=== PATIENT | female | born 1990 | race Caucasian/White ===

== ENCOUNTER 2018-10-06 17:15 | Emergency (ER) | payer OTHER, SELFPAY ==
[2018-10-06 17:28] VITALS: BP 124/72; PULSE 101; RESP 20; TEMP 37.1; O2SAT 100
--- NOTE | 2018-10-06 17:43 | PC.NURSE ---
5 month old son, with hx of bronchiolitis, also with conjunctivitis, pt woke up today with right eye discomfort, redness and with drainage, denies wearing contact lens, denies injuries or trauma.
--- NOTE | 2018-10-06 18:18 | ED.EYEPROB ---
HPI - Eye Problem <ANDRIA Hogan - Last Filed: 10/06/18 18:46> General Chief complaint: Eye Problems Stated complaint: pink eye left Time Seen by Provider: 10/06/18 17:24 Source: patient Mode of arrival: ambulatory Limitations: no limitations History of Present Illness HPI Narrative: 27-year-old healthy female presents emergency department today complaining of right eye irritation, redness, and clear watery discharge since this morning. She states that her infant has also had the same symptoms, and her 2 young infants of both been sick with upper respiratory illnesses. Associated blurry vision from discharge mucus, patient denies double vision or loss of vision, headaches, cough, shortness of breath, ear pain, or sinus pain. No chest pain. Patient does not were contacts. Related Data Allergies Allergy/AdvReac Type Severity Reaction Status Date / Time No Known Drug Allergies Allergy Verified 10/06/18 17:30 Review of Systems <ANDRIA Hogan - Last Filed: 10/06/18 18:46> Review of Systems REVIEW OF SYSTEMS: GENERAL: Denies fever or chills. HENT: No head trauma, hearing loss or sore throat. EYES: Reports right eye irritation, see HPI. CARDIOVASCULAR: No chest pain or syncope. RESPIRATORY: No shortness of breath or cough. GASTROINTESTINAL: No nausea, vomiting, diarrhea, or constipation. GENITOURINARY: No flank pain or dysuria. MUSCULOSKELETAL: No pain, weakness, or deformities. INTEGUMENTARY: No rash, lesions, or pruritus. NEURO: No numbness, tingling, memory loss, or confusion. PSYCH: No behavior or mood changes. PFSH <ANDRIA Hogan - Last Filed: 10/06/18 18:46> Medical History No significant medical problems (Acute) Social History Smoking Status: Former smoker Social History Smoking Status: Former smoker Exam <ANDRIA Hogan - Last Filed: 10/06/18 18:46> Initial Vital Signs Initial Vital Signs: Vital Signs Temperature 98.8 F 10/06/18 17:28 Pulse Rate 101 H 10/06/18 17:28 Respiratory Rate 20 10/06/18 17:28 Blood Pressure 124/72 10/06/18 17:28 Pulse Oximetry 100 10/06/18 17:28 PHYSICAL EXAMINATION: GENERAL: Well groomed, alert, and cooperative. Answers questions promptly and appropriately. Vital signs noted. HENT: Normocephalic, atraumatic. Oral mucosa is pink and moist. EYES: PERRLA, non pain full texture ocular eye movements (although patient states the eye is more irritated with movement and blinking), conjunctiva erythematous, sclera erythematous, clear mucoid discharge was noted in the corner of eye. No periorbital swelling. CHEST: Normal to inspection and without deformities. CARDIOVASCULAR: S1 and S2 sounds normal. Regular rate and rhythm, no murmurs, clicks, or bruits. No pedal edema. RESPIRATORY: Normal respiratory rate, trachea midline, airway patent. No stridor, nasal flaring or accessory muscle use. Lungs are clear in all sanchez without wheeze, rhonchi, or crackles. MUSCULOSKELETAL: Normal gait and coordination. Equal tone and mass bilaterally. EXTREMITIES: CMS intact. Moves all extremities. SKIN: Warm, dry, soft, appropriate color for ethnicity. No lesions, rashes, or wounds. NEURO: Alert and Oriented X 3. Good coordination. No ataxia, or sensory deficits, or cognitive issues. PSYCH: Appropriate affect and mood. LYMPH: No lymphadenopathy. <Audra Serrano DO - Last Filed: 10/09/18 07:39> Initial Vital Signs Initial Vital Signs: Vital Signs Temperature 98.8 F 10/06/18 17:28 Pulse Rate 101 H 10/06/18 17:28 Respiratory Rate 20 10/06/18 17:28 Blood Pressure 124/72 10/06/18 17:28 Pulse Oximetry 100 10/06/18 17:28 Course <ANDRIA Hogan - Last Filed: 10/06/18 18:46> Course Narrative: Pre packed medication given to patient as all pharmacies are closed. Orders Ordered: Discontinued Medications Polymyxin/Trimethoprim Sulfate (Polytrim Prepack) 1 bottle [facility] SEEINSTR ONE Stop: 10/06/18 18:29 Last Admin: 10/06/18 18:43 Dose: 2 drop Vital Signs - 8 hr 10/06/18 17:28 Temperature 98.8 F Pulse Rate 101 H Respiratory Rate 20 Blood Pressure 124/72 Pulse Oximetry 100 <Audra Serrano DO - Last Filed: 10/09/18 07:39> Orders Ordered: Discontinued Medications Polymyxin/Trimethoprim Sulfate (Polytrim Prepack) 1 bottle [facility] SEEINSTR ONE Stop: 10/06/18 18:29 Last Admin: 10/06/18 18:43 Dose: 2 drop Vital Signs - 8 hr 10/06/18 17:28 Temperature 98.8 F Pulse Rate 101 H Respiratory Rate 20 Blood Pressure 124/72 Pulse Oximetry 100 MDM - Eye Problem <Jaki YamilethsinanANDRIA - Last Filed: 10/06/18 18:46> Medical Records Attestation: I reviewed the patient's medical records. Lab Data Attestation: I reviewed the patient's lab results. [facility] Narrative Medical decision making narrative: I suspect that patient's symptoms are caused eye conjunctivitis, it is most likely viral in nature as her children 6 with viral illnesses and have manifested conjunctivitis as well. However the patient reports that she does have allergies so she is more pressure bacterial conjunctivitis to regular eyes. She does not wear contacts. Antibiotics were prescribed as a standard for viral and bacterial conjunctivitis. Discharge Plan Departure Patient Disposition: Home Clinical Impression: Conjunctivitis Qualifiers: Conjunctivitis type: acute Acute conjunctivitis type: unspecified Laterality: right Qualified Code(s): H10.31 - Unspecified acute conjunctivitis, right eye Discharge Date/Time: 10/06/18 18:45 Interventions: ED Discharge Assessment Last Done: 10/06/18 18:45 Instructions: DI for Conjunctivitis Activity Restrictions/Additional Instructions: Thank you for entrusting me with your care today. As discussed, that irritation of her eye is probably caused from conjunctivitis, it is possible it may be viral however because once you have have viral conjunctivitis you're very susceptible to bacterial conjunctivitis prescribed you antibiotic eyedrops. Please follow-up with your eye doctor in the next week if symptoms do not resolve. Return to the emergency department if you have sudden worsening of eye pain, loss of vision, severe increased swelling around your eye, sudden onset of severe headache, chest pain or shortness of breath. <Audra Serrano DO - Last Filed: 10/09/18 07:39> Cosign ED Attending Cossiddhartha Attestation: I was immediately available in the department for consultation. Documentation has been reviewed. I agree with assessment and plan.
--- NOTE | 2018-10-06 18:21 | ED_ITS ---
HPI - Eye Problem <ANDRIA Hogan - Last Filed: 10/06/18 18:46> General Chief complaint: Eye Problems Stated complaint: pink eye left Time Seen by Provider: 10/06/18 17:24 Source: patient Mode of arrival: ambulatory Limitations: no limitations History of Present Illness HPI Narrative: 27-year-old healthy female presents emergency department today complaining of right eye irritation, redness, and clear watery discharge since this morning. She states that her infant has also had the same symptoms, and her 2 young infants of both been sick with upper respiratory illnesses. Associa rico blurry vision from discharge mucus, patient denies double vision or loss of vision, headaches, cough, shortness of breath, ear pain, or sinus pain. No chest pain. Patient does not were contacts. Related Data Allergies Allergy/AdvReac Type Severity Reaction Status Date / Time No Known Drug Allergies Allergy Verified 10/06/18 17:30 Review of Systems <ANDRIA Hogan - Last Filed: 10/06/18 18:46> Review of Systems REVIEW OF SYSTEMS: GENERAL: Denies fever or chills. HENT: No head trauma, hearing loss or sore throat. EYES: Reports right eye irritation, see HPI. CARDIOVASCULAR: No chest pain or syncope. RESPIRATORY: No shortness of breath or cough. GASTROINTESTINAL: No nausea, vomiting, diarrhea, or constipation. GENITOURINARY: No flank pain or dysuria. MUSCULOSKELETAL: No pain, weakness, or deformities. INTEGUMENTARY: No rash, lesions, or pruritus. NEURO: No numbness, tingling, memory loss, or confusion. PSYCH: No behavior or mood changes. PFSH <ANDRIA Hogan - Last Filed: 10/06/18 18:46> Medical History No significant medical problems (Acute) Social History Smoking Status: Former smoker Social History Smoking Status: Former smoker Exam <ANDRIA Hogan - Last Filed: 10/06/18 18:46> Initial Vital Signs Initial Vital Signs: Vital Signs Temperature 98.8 F 10/06/18 17:28 Pulse Rate 101 H 10/06/18 17:28 Respiratory Rate 20 10/06/18 17:28 Blood Pressure 124/72 10/06/18 17:28 Pulse Oximetry 100 10/06/18 17:28 PHYSICAL EXAMINATION: GENERAL: Well groomed, alert, and cooperative. Answers questions promptly and appropriately. Vital signs noted. HENT: Normocephalic, atraumatic. Oral mucosa is pink and moist. EYES: PERRLA, non pain full texture ocular eye movements (although patient states the eye is more irritated with movement and blinking), conjunctiva erythematous, sclera erythematous, clear mucoid discharge was noted in the corner of eye. No periorbital swelling. CHEST: Normal to inspection and without deformities. CARDIOVASCULAR: S1 and S2 sounds normal. Regular rate and rhythm, no murmurs, clicks, or bruits. No pedal edema. RESPIRATORY: Normal respiratory rate, trachea midline, airway patent. No stridor, nasal flaring or accessory muscle use. Lungs are clear in all sanchez without wheeze, rhonchi, or crackles. MUSCULOSKELETAL: Normal gait and coordination. Equal tone and mass bilaterally. EXTREMITIES: CMS intact. Moves all extremities. SKIN: Warm, dry, soft, appropriate color for ethnicity. No lesions, rashes, or wounds. NEURO: Alert and Oriented X 3. Good coordination. No ataxia, or sensory deficits, or cognitive issues. PSYCH: Appropriate affect and mood. LYMPH: No lymphadenopathy. <Audra Serrano DO - Last Filed: 10/09/18 07:39> Initial Vital Signs Initial Vital Signs: Vital Signs Temperature 98.8 F 10/06/18 17:28 Pulse Rate 101 H 10/06/18 17:28 Respiratory Rate 20 10/06/18 17:28 Blood Pressure 124/72 10/06/18 17:28 Pulse Oximetry 100 10/06/18 17:28 Course <ANDRIA Hogan - Last Filed: 10/06/18 18:46> Course Narrative: Pre packed medication given to patient as all pharmacies are closed. Orders Ordered: Discontinued Medications Polymyxin/Trimethoprim Sulfate (Polytrim Prepack) 1 bottle [facility] [place] SEEINSTR ONE Stop: 10/06/18 18:29 Last Admin: 10/06/18 18:43 Dose: 2 drop Vital Signs - 8 hr 10/06/18 17:28 Temperature 98.8 F Pulse Rate 101 H Respiratory Rate 20 Blood Pressure 124/72 Pulse Oximetry 100 <Audra Serrano DO - Last Filed: 10/09/18 07:39> Orders Ordered: Discontinued Medications Polymyxin/Trimethoprim Sulfate (Polytrim Prepack) 1 bottle [facility] ONE Stop: 10/06/18 18:29 Last Admin: 10/06/18 18:43 Dose: 2 drop Vital Signs - 8 hr 10/06/18 17:28 Temperature 98.8 F Pulse Rate 101 H Respiratory Rate 20 Blood Pressure 124/72 Pulse Oximetry 100 MDM - Eye Problem <Jaki ANDRIA Metcalf - Last Filed: 10/06/18 18:46> Medical Records Attestation: I reviewed the patient's medical records. Lab Data Attestation: I reviewed the patient's lab results. [facility] Narrative Medical decision making narrative: I suspect that patient's symptoms are caused eye conjunctivitis, it is most likely viral in nature as her children 6 with viral illnesses and have manifested conjunctivitis as well. However the patient reports that she does have allergies so she is more pressure bacterial conjun ctivitis to regular eyes. She does not wear contacts. Antibiotics were prescribed as a standard for viral and bacterial conjunctivitis. Discharge Plan Departure Patient Disposition: Home Clinical Impression: Conjunctivitis Qualifiers: Conjunctivitis type: acute Acute conjunctivitis type: unspecified Laterality: right Qualified Code(s): H10.31 - Unspecified acute conjunctivitis, right eye Discharge Date/Time: 10/06/18 18:45 Interventions: ED Discharge Assessment Last Done: 10/06/18 18:45 Instructions: DI for Conjunctivitis Activity Restrictions/Additional Instructions: Thank you for entrusting me with your care today. As discussed, that irritation of her eye is probably caused from conjunctivitis, it is possible it may be viral however because once you have have viral conjunctivitis you're very susceptible to bacterial conjunctivitis prescribed you antibiotic eyedrops. Please follow-up with your eye doctor in the next week if symptoms do not resolv e. Return to the emergency department if you have sudden worsening of eye pain, loss of vision, severe increased swelling around your eye, sudden onset of severe headache, chest pain or shortness of breath. <Audra Serrano DO - Last Filed: 10/09/18 07:39> Cosign ED Attending Cosignature Attestation: I was immediately available in the department for consultation. Documentation has been reviewed. I agree with assessment and plan.
[2018-10-06] MEDS: POLYMY B/TRIMETH OPHTH PREPACK 1 BOTTLE MISC (18:43)
== END 2018-10-06 18:45 | disposition home or self-care (01) ==
PROVIDERS: Emergency Provider Nurse Practitioner
DX: H10.31 Unspecified acute conjunctivitis, right eye (principal)
CPT/HCPCS: 99282; 99283

== ENCOUNTER 2019-02-12 03:00 | Emergency (ER) | payer OTHER, SELFPAY ==
[2019-02-12 03:03] VITALS: BP 117/72; PULSE 79; RESP 16; TEMP 36.3; O2SAT 100; BMI 23.8
--- NOTE | 2019-02-12 03:21 | ED.GENADULT ---
HPI - General Adult General Chief complaint: Abdominal Pain Stated complaint: abdomen and left side pain Time Seen by Provider: 02/12/19 03:03 Source: patient Mode of arrival: Ambulatory Limitations: no limitations History of Present Illness HPI narrative: Patient is a 28-year-old female here for evaluation of less than 12 hours of left-sided abdominal pain that is radiating to the left side of her back. No urinary symptoms. She states that she has had ovarian cyst rupture in the past and this felt somewhat like that however this time it was more intense than normal. Some nausea but no vomiting. No vaginal bleeding. Earlier this year she underwent an emergent hysterectomy after delivering twins. She still has her ovaries. She is not on any control. No other abdominal surgeries. Has not tried anything for symptoms prior to arrival Related Data Allergies Allergy/AdvReac Type Severity Reaction Status Date / Time No Known Drug Allergies Allergy Verified 10/06/18 17:30 Review of Systems Constitutional Constitutional: Denies fever(s) Cardiovascular Cardiovascular: Denies chest pain and Denies dyspnea Respiratory Respiratory: Denies dyspnea Gastrointestinal Gastrointestinal: Reports abdominal pain, Denies change in stool character, Reports nausea and Denies vomiting Genitourinary Genitourinary: Denies dysuria, Denies pelvic pain and Denies flank pain Musculoskeletal Musculoskeletal: Denies myalgias and Denies arthralgias Integumentary/Breasts Skin/Breast: Denies lesions and Denies rash Neurologic Neurologic: Denies behavioral changes Psychiatric Psychiatric: Denies behavioral changes Hematologic/Lymphatic Hematologic/Lymphatic: Denies easy bleeding and Denies easy bruising Patient History Medical History No significant medical problems (Acute) Surgical History History of hysterectomy (Acute) Social History Smoking Status: Former smoker alcohol intake frequency: a few times a month Substance Use Type: does not use Exam Initial Vital Signs Initial Vital Signs: Vital Signs Temperature 97.3 F L 02/12/19 03:03 Pulse Rate 79 02/12/19 03:03 Respiratory Rate 16 02/12/19 03:03 Blood Pressure 117/72 02/12/19 03:03 Pulse Oximetry 100 02/12/19 03:03 Const General: cooperative and comfortable Orientation: alert, awake and oriented x3 HENMT Head: normal to inspection and normocephalic Resp Effort & Inspection: normal respiratory effort Auscultation: clear to auscultation bilaterally Cardio Rate: regular rate Rhythm: regular rhythm GI Inspection: non-distended Palpation: soft, No firm and tender (Left lower quadrant) Back/Spine/Pelvis Back: No CVA tenderness Skin Lesions: no lesions Rashes: no rashes Neuro General: alert and awake Cognition: normal cognition Speech: speech normal Extrem General: normal to inspection and capillary refill normal Psych Appearance: grossly normal and well kempt Course Orders Ordered: ED Orders 02/12/19 03:30 Urine Microscopic Stat 02/12/19 03:58 US pelvic complete Stat Vital Signs Vital signs: Vital Signs - 8 hr 02/12/19 03:03 Temperature 97.3 F L Pulse Rate 79 Respiratory Rate 16 Blood Pressure 117/72 Pulse Oximetry 100 Medical Decision Making Lab Data Lab results reviewed: Yes I reviewed the patient's lab results. Labs: Lab Results 02/12/19 Range/Units 03:30 Urine RBC None seen (0-5/HPF) Urine WBC None seen (0-5/HPF) Ur Squamous Epith Cells 1-5 /hpf (0-5/HPF) Urine Bacteria Few (2-10) H (None) Ur Culture Indicated? Cult not indicated Urine Dip Bedside Urine Glucose Negative Bedside Urine Bilirubin - Negative Bedside Urine Ketone - Negative Urine Specific [place] 1.015 Bedside Urine Occult Blood - Negative Bedside Urine pH 6.0 Bedside Urine Protein - Negative Bedside Urine Urobilinogen - Negative Bedside Urine Nitrite - Negative Bedside Urine Leukocytes +/- 15 Esterase Point of care testing: Urine Dip Bedside Urine Glucose Negative Bedside Urine Bilirubin - Negative Bedside Urine Ketone - Negative Urine Specific [place] 1.015 Bedside Urine Occult Blood - Negative Bedside Urine pH 6.0 Bedside Urine Protein - Negative Bedside Urine Urobilinogen - Negative Bedside Urine Nitrite - Negative Bedside Urine Leukocytes +/- 15 Esterase Imaging Data US - abdomen: Radiologist's impression: Status post hysterectomy, the vaginal cuff is normal. Normal sonographic appearance of bilateral ovaries in bilateral kidneys MDM Narrative Medical decision making narrative: Patient's urine is unremarkable. Her ultrasound is unremarkable. She has a relatively benign abdominal exam. Her physical exam is not consistent with renal colic. Is on the left however did consider appendicitis number feel this is unlikely given her presentation. Had a discussion with the patient regarding her options. She did opt to have the pelvic ultrasound which again was unremarkable. We discussed potentially doing a CT scan for further evaluation however I do feel that given her presentation and how long her symptoms have been going on that we should wait on doing this for now. Patient was given return precautions and follow-up instructions. She expressed understanding and agreement with plan. Discharge Plan Departure Patient Disposition: Home Clinical Impression: Abdominal pain Qualifiers: Abdominal location: left lower quadrant Qualified Code(s): R10.32 - Left lower quadrant pain Instructions: DI for Abdominal Pain-Adult Activity Restrictions/Additional Instructions: The ultrasound and your urine here in the emergency department were unremarkable. Your ovaries looked normal. We decided to hold on a CT scan for now. I do not feel this is unreasonable. If your symptoms worsen or change read develop any new symptoms over the next 12-24 hours please return to the emergency department for further evaluation
[2019-02-12 03:48] LABS: RBC Urine None Seen (0-5/HPF); WBC Urine None Seen (0-5/HPF)
[2019-02-12 03:53] LABS: Bacteria Urine Few (2-10); Squamous Epithelial Cell Urine 1-5 /HPF (0-5/HPF)
[2019-02-12 03:54] LABS: Culture Indicated Urine Cult Not Indicated
--- NOTE | 2019-02-12 03:58 | DI.US.S_ITS ---
PROCEDURE: US PELVIC COMPLETE INDICATIONS: LEFT PELVIC PAIN TECHNIQUE: Real-time scanning was performed of the pelvic organs, with image documentation. Additional endovaginal scanning was necessary due to incomplete visualization of the adnexal and endometrial structures by transabdominal scanning. COMPARISON: None. FINDINGS: Transabdominal scanning: Limited scanning through the kidneys shows no hydronephrosis. No pathologic free abdominal or pelvic fluid. Endovaginal scanning: Uterus: Surgically absent. Ovaries: Right ovary measures 2.50 1.6 cm. Left ovary measures 3.5 x 2.4 x 2.8 cm. Normal flow in both ovaries. Multiple small left ovarian cysts. No abnormal adnexal masses. Physiologic fluid in the pelvis. IMPRESSION: Remote hysterectomy. Otherwise unremarkable pelvic ultrasound. Comment: Final report is concordant with preliminary interpretation provided by [facility]. Dictated by: Jose Daniel Perez M.D. on 02/12/2019 at 9:40 Approved by: Jose Daniel Perez M.D. on 02/12/2019 at 9:43
[2019-02-12 05:30] VITALS: BP 117/78; PULSE 71; RESP 16; O2SAT 100
== END 2019-02-12 05:30 | disposition home or self-care (01) ==
PROVIDERS: Emergency Provider Emergency Medicine
DX: R10.32 Left lower quadrant pain (principal)
CPT/HCPCS: 76830; 76856; 81003; 81015; 99282; 99283